=== PATIENT | female | born 1980 | race Caucasian/White ===

== ENCOUNTER 2017-03-13 13:33 | Observation (INO) | payer OTHER ==
[~2017-03-13] VITALS: Ht 160 cm; Wt 66.4 kg
[~2017-03-13 13:33] MED LIST: NO; ULTRAM50 M1 PO
--- NOTE | 2017-03-13 13:40 | NUR ---
PT IMMEDIATELY TO ROOM 8. EKG PERFORMED. DR CHRISTOPHER TO BEDSIDE.
[2017-03-13 14:04] LABS: HEMOGLOBIN 13.5 g/dl (12.0-16.0); IMMATURE GRANULOCYTES 0.2 % (0.0-1.0); MEAN CELL VOLUME 93.1 fL CALC (80.0-100.0); MEAN CORPUSCULAR HGB 32.2 pG CALC (26.0-32.0); MEAN CORPUSCULAR HGB CONC 34.6 g/L CALC (32.0-36.0); NEUT# 4.04 thou/uL (2.00-7.15); RED BLOOD COUNT 4.19 mill/uL (4.20-5.60); RED CELL DISTRI WIDTH 11.8 % (11.5-15.5)
--- NOTE | 2017-03-13 14:10 | NUR ---
PT C/O FEELING LESS TACTILE SENSATION TO LT SIDE OF FACE, LT NECK AND LT CHEST. NORMAL SENSATION TO BOTH ARMS AND LEGS. NO DRIFT NOTED. FACIAL SYMMETRY NOTED. VSS. PT STATES SHE HAS SOME HISTORY OF INFREQUENT ANXIETY ATTACKS.
[2017-03-13 14:17] LABS: ALBUMIN 4.7 g/dL (3.2-5.0); ALKALINE PHOSPHATASE 66 u/l (38-126); ANION GAP 13 (6-22 (CALC)); BILIRUBIN, TOTAL 0.3 mg/dL (0.0-1.4); BUN 19 mg/dL (7-17); BUN/CREATININE RATIO 24 (12-20 (CALC)); CALCIUM 9.6 mg/dL (8.4-10.2); CARBON DIOXIDE 29 mmol/l (22-30); CHLORIDE 103 mmol/l (95-108); CREATININE 0.8 mg/dL (0.5-1.0); GFR > 60 ML/MIN (>=60 (CALC)); GFR FOR AFR.AMER. > 60 ML/MIN (>=60 (CALC)); GLUCOSE 91 mg/dL (65-105); POTASSIUM 3.7 mmol/l (3.5-5.1); SGOT/AST 43 u/l (14-36); SGPT/ALT 92 u/l (9-52); SODIUM 142 mmol/l (137-146)
[2017-03-13 14:18] LABS: URINE BILIRUBIN - DIPSTICK NEGATIVE (NEGATIVE); URINE BLOOD DIPSTICK TRACE-INTACT (NEGATIVE); URINE CLARITY CLEAR; URINE COLOR YELLOW; URINE GLUCOSE - DIPSTICK NEGATIVE (NEGATIVE); URINE KETONE 40 mg/dL (NEGATIVE); URINE LEUK ESTERASE NEGATIVE (NEGATIVE); URINE NITRITE - DIPSTICK NEGATIVE (Negative); URINE PROTEIN - DIPSTICK NEGATIVE (NEG-TRACE); URINE UROBILINOGEN - DIPSTICK 0.2 E.U./dL (0.2)
[2017-03-13 14:29] LABS: MYOGLOBIN 21 ng/mL (0 - 62)
--- NOTE | 2017-03-13 15:11 | NUR ---
PT AMB TO BATHROOM UNSTEADY. VSS. MAEW. NO NEGLECT
--- NOTE | 2017-03-13 16:04 | NUR ---
PT STATES SHE FEELS MUCH MORE DIZZY WHEN SHE LIES FLAT. PT STATES SHE FEELS SLIGHTLY DISORIENTED. PT APPEARS SLIGHTLY ANXIOUS. VSS. ORTHOSTATIC VS PERFORMED.
--- NOTE | 2017-03-13 16:10 | NUR ---
DR HERNÁNDEZ IN TO SEE PT
--- NOTE | 2017-03-13 16:30 | NUR ---
CALLED REPORT TO ANASTASIA FLAHERTY RN
--- NOTE | 2017-03-13 16:35 | NUR ---
PT TRANSPORTED TO [address] ON TELEMETRY IN STABLE CONDITION
--- NOTE | 2017-03-13 16:40 | NUR ---
PT ARRIVED TO FLOOR VIA WHEELCHAIR ACCOMPANIED BY RAPHAEL BARRERA. PT DENIES PAIN. REPORTING OF CONCERNS ENCOURAGED. PT ORIENTED TO ROOM AND EQUIPMENT. PLAN OF CARE DISCUSSED. CALL LIGHT REVIEWED AND IN REACH. PT STATES UNDERSTANDING.
--- NOTE | 2017-03-13 18:50 | NUR ---
RECEIVED SHIFT REPORT FROM RAPHAEL CAZARES. PATIENT IS SITTING UP N BED AND APPEARS NOT TO BE IN ANY DISTRESS OR DISCOMFORT. DENIES PAIN.WILL CONTINUE TO MONITOR.
[2017-03-13 19:20] VITALS: BP 108/81
--- NOTE | 2017-03-13 21:00 | NUR ---
PATIENT DENIES CHEST PAIN. NO DIZZINESS OR DECREASED SENSATION. PATIENT STATED " I'M HAVING MORE HEADACHE THAN ANYTHING". OFFRERED COLD PACK BUT PT REFUSED. SUGGESTED THAT I WILL CALL TO GET SOMETHING FOR HEADACHE, PATIENT STATED "IT'S OKAY". WILL CONTINUE TO MONITOR.
--- NOTE | 2017-03-14 | NUR ---
PATIENT IS RESTING QUIETLY AT THIS TIME AND IN NO APPARENT DISTRESS OR DISCOMFORT AT THIS TIME.
[2017-03-14 00:03] VITALS: BP 93/61
--- NOTE | 2017-03-14 04:00 | NUR ---
NO ACUTE CHANGES NOTED IN PATIENT'S CONDITION.
[2017-03-14 04:35] VITALS: BP 95/71
--- NOTE | 2017-03-14 07:00 | NUR ---
REPORT RECIEVED FROM RAPHAEL HERNANDEZ; PT RESTING IN BED; EASILY AROUSED; PT C/O SLIGHT ADAMSON; DENIES ANY CHEST PAIN OR NUMBNESS THIS MORNING; PT ENCOURAGED TO CALL WITH ANY CHANGE IN STATUS OR ASSISTANCE NEEDED; CALL LIGHT WITHIN REACH; WILL CONTINUE TO MONITOR
[2017-03-14 08:02] VITALS: BP 105/70
--- NOTE | 2017-03-14 10:40 | NUR ---
Discharge instructions given. Patient verbalizes understanding of same. Discharged in stable condition via Ambulatory to Home with family. All belongings sent with pt.
== END 2017-03-14 10:34 | disposition home or self-care (01) | DRG 313 ==
LOC: ENPENDDIS → ED 13:33 → ED-I 15:31 → ED 16:03 → MS2 16:04
PROVIDERS: Emergency Medicine; ADMIT Internal Medicine; ATTEND Internal Medicine
DX: R07.89 Other chest pain (principal); F41.9 Anxiety disorder, unspecified; R20.9 Unspecified disturbances of skin sensation; Z63.9 Problem related to primary support group, unspecified
CPT/HCPCS: G0378

== ENCOUNTER 2019-04-15 08:32 | Day surgery (SDC) | payer BC ==
[~2019-04-15 08:32] MED LIST changes: +TOBRAMYCIN0.31 OU
[2019-04-15 14:11] VITALS: BP 123/72
== END 2019-04-15 14:00 | disposition home or self-care (01) | DRG 494 ==
LOC: ORM 08:32
PROVIDERS: ATTEND Podiatrist Foot & Ankle Surgery
PROC: 0SBF4ZZ Excision of Right Ankle Joint, Percutaneous Endoscopic Approach (ICD-10-PCS; principal; 2019-04-15)
PROC: 0QBL4ZZ Excision of Right Tarsal, Percutaneous Endoscopic Approach (ICD-10-PCS; 2019-04-15)
PROC: 0QBG4ZZ Excision of Right Tibia, Percutaneous Endoscopic Approach (ICD-10-PCS; 2019-04-15)
PROC: 0QB Lower Bones, Excision (ICD-10-PCS; 2019-04-15)
PROC: 0LNS0ZZ Release Right Ankle Tendon, Open Approach (ICD-10-PCS; 2019-04-15)
PROC: 0SBF0ZZ Excision of Right Ankle Joint, Open Approach (ICD-10-PCS; 2019-04-15)
PROC: 0LBS0ZZ Excision of Right Ankle Tendon, Open Approach (ICD-10-PCS; 2019-04-15)
PROC: 0LSS0ZZ Reposition Right Ankle Tendon, Open Approach (ICD-10-PCS; 2019-04-15)
DX: M76.71 Peroneal tendinitis, right leg (principal); M66.371 Spontaneous rupture of flexor tendons, right ankle and foot; M65.871 Other synovitis and tenosynovitis, right ankle and foot; M62.89 Other specified disorders of muscle; M67.873 Other specified disorders of tendon, right ankle and foot; M24.671 Ankylosis, right ankle; M89.9 Disorder of bone, unspecified; M77.9 Enthesopathy, unspecified
CPT/HCPCS: J0131